=== PATIENT | female | born 1940 | race Caucasian/White ===

== ENCOUNTER 2023-12-15 08:22 | Emergency (ER) | payer BC ==
[~2023-12-15] VITALS: Ht 157.5 cm; Wt 57.6 kg
[2023-12-15 08:28] VITALS: TEMP 97.4
[2023-12-15 10:05] VITALS: BP 171/88; PULSE 77; RESP 14; O2SAT 97
[2023-12-15] MEDS ORDERED: BENZ-38 PO (11:20)
[2023-12-15 11:21] LABS: BASOPHILS # (AUTO) 0.1 X10'3 (0-0.2); BASOPHILS % (AUTO) 0.6 % (0-1); EOSINOPHILS # (AUTO) 0.3 X10'3 (0-0.9); EOSINOPHILS % (AUTO) 2.8 % (0-6); HEMATOCRIT 45.5 % (35.0-45.0); HEMOGLOBIN 14.8 g/dl (12.0-16.0); LYMPHOCYTES # (AUTO) 1.8 X10'3 (1.1-4.8); LYMPHOCYTES % (AUTO) 17.8 % (21-51); MEAN CORPUSCULAR HEMOGLOBIN 27.3 PG (27.0-31.0); MEAN CORPUSCULAR HGB CONC 32.5 g/dL (33.0-36.5); MEAN CORPUSCULAR VOLUME 83.9 FL (78-98); MONOCYTES # (AUTO) 1.1 X10'3 (0-0.9); MONOCYTES % (AUTO) 10.5 % (2-12); NEUTROPHILS % (AUTO) 68.3 % (42-75); PLATELET COUNT 452 X10'3 (140-440); RED BLOOD COUNT 5.43 X10'6 (4.20-5.60); RED CELL DISTRIBUTION WIDTH 14.5 % (11.5-14.5); WHITE BLOOD COUNT 10.3 X10'3 (4.5-11.0)
[2023-12-15 11:25] LABS: D-DIMER 0.83 MG/L FEU (0-0.50)
[2023-12-15] MEDS ORDERED: LISI10TA27 PO (11:26)
[2023-12-15 11:40] LABS: ALBUMIN 2.9 G/DL (3.4-5.0); ANION GAP 6 (8-16); BLOOD UREA NITROGEN 14 MG/DL (7-18); BUN/CREATININE RATIO 17.1 (10.0-20.0); CALCIUM 8.8 MG/DL (8.5-10.1); CHLORIDE 104 MMOL/L (99-107); CREATININE 0.82 MG/DL (0.40-0.90); GLUCOSE 108 MG/DL (70-104); POTASSIUM 3.9 MMOL/L (3.5-5.1); PRO BRAIN NATRIURETIC PEPTIDE 306 PG/ML (0-450); SODIUM 140 MMOL/L (135-145); TOTAL CARBON DIOXIDE 29.7 MMOL/L (24-32); eCRCL 43 ML/MIN; eGFR 67 ML/MIN
== END 2023-12-15 11:43 | disposition home or self-care (01) ==
LOC: ER 08:23
DX: R05.9 Cough, unspecified (principal); I10 Essential (primary) hypertension
CPT/HCPCS: 36415; 71045; 80048; 83880; 84145; 85025; 85379; 93005; 99285

== ENCOUNTER 2025-03-06 09:29 | Emergency (ER) | payer BC, MEDICAID ==
[~2025-03-06] VITALS: Ht 157.5 cm; Wt 74.8 kg
[~2025-03-06 09:29] MED LIST: LISI10TA27 PO
[2025-03-06 09:39] VITALS: TEMP 99.1
--- NOTE | 2025-03-06 09:39 | Physician Documentation ---
History of Present Illness ~ Stated Complaint: FLU SYMPTOMS Time Seen by MD: 09:38 [facility] 84 yr old female presents to the emergency department for four days if symptoms of cough cold congestion. She also notes that she had some symptoms earlier of my heart felt like it was being squeezed. she denies chills or fever. She denies pain to include chest pain. Medication Reconciliation Allergies: Coded Allergies: No Known Allergies (Unverified , 12/15/23) Scheduled Lisinopril (Lisinopril), 1 TAB PO DAILY Past Medical History Past Medical History: Hypertension Past Surgical History: noncontributory Drug Use: none Lives In: Home Review of Systems ROS As stated above in the HPI, otherwise all systems are reviewed and negative. Physical Exam Physical Exam General: Alert, no apparent distress. HEENT: PERRL, EOMI, no injection, moist mucous membranes. Right TM erythematous. Left TM normal. Both canals clear. Neck: Full range of motion. Respiratory: Scattered wheezes, frequent tight cough. No distress. No tachypnea. Chest: No accessory muscle use. Cardiovascular: Regular rate and rhythm, no murmurs. Gastrointestinal: Soft, nontender, nondistended. Bowels sounds present. Extremities: Normal range of motion, no deformity. Neurologic: Oriented x4. Psychiatric: Normal mood and affect. Skin: Normal color, warm and dry. No edema, no ecchymosis. 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 MACHINE OPERATOR Chest,Single View (03/06/25 09:52) Saline Lock (03/06/25 09:52) Monitor (03/06/25 09:52) Hs Troponin I W Calculations (03/06/25 11:52) Hs Troponin I W Calculations (03/06/25 12:52) Covid19 Binax Poc Result Entry (03/06/25 10:44) Completed Orders - SALINA FARAH TUBE MACHINE OPERATOR Electrocardiogram (03/06/25 09:42) Cbc/Diff (03/06/25 09:52) MG (03/06/25 09:52) PBNP (03/06/25 09:52) Chest,Single View (03/06/25 09:52) BMP (03/06/25 09:52) Hs Troponin I W Calculations (03/06/25 09:52) Vital Signs 03/06/25 03/06/25 03/06/25 03/06/25 09:39 10:09 10:11 11:15 Temp 99.1 Pulse 83 84 79 Resp 16 21 11 B/P (MAP) 157/88 168/116 (133) 146/95 (112) Pulse Ox 99 97 98 O2 Flow Rate 0 0 0 Laboratory Tests Test 03/06/25 10:10 03/06/25 10:50 03/06/25 12:04 White Blood Count 7.5 Red Blood Count 5.67 H Hemoglobin 15.5 Hematocrit 46.6 H Mean Corpuscular Volume 82.2 Mean Corpuscular Hemoglobin 27.3 Mean Corpuscular Hemoglobin Concent 33.2 Red Cell Distribution Width 14.9 H Platelet Count 344 Mean Platelet Volume 8.6 Neutrophils (%) (Auto) 62.7 Lymphocytes (%) (Auto) 19.0 L Monocytes (%) (Auto) 14.5 H Eosinophils (%) (Auto) 3.4 Basophils (%) (Auto) 0.4 Neutrophils # (Auto) 4.7 Lymphocytes # (Auto) 1.4 Monocytes # (Auto) 1.1 H Eosinophils # (Auto) 0.3 Basophils # (Auto) 0.0 CBC Comment Sodium Level 139 Potassium Level 3.7 Chloride Level 104 Carbon Dioxide Level 28.4 Anion Gap 7 L Blood Urea Nitrogen 15 Creatinine 0.94 H Estimated GFR/1.73 m2 57 BUN/Creatinine Ratio 16.0 Glucose Level 116 H Calcium Level 8.5 Magnesium Level 2.1 Troponin I High Sensitivity 6 6 Pro-B-Type Natriuretic Peptide 119 Albumin 3.3 L Chemistry Comments SARS-CoV-2 Antigen (Rapid) Negative Troponin I High Sens Percent Delta 0 Troponin I Hi Sens Absolute Change 0 EKG/XRAY/CT/US/VASC/MRI EKG : Additional Comment 4445 EKG interpreted to show RSR rate of 85. No ST segment elevation. QTC 431 ms. Chest X-Ray : Additional Comments [facility] [address] [facility], [facility] [address] DIAGNOSTIC RADIOLOGY Patient: YASMANY JUDD Medical Record: [id number] [facility] 1940, Age: 84 Sex: Female Location: ER Patient Status: [facility] ER Service Date/Time: 03/06/25951 Ordering Physician: SALINA FARAH NP Exam: CHEST,SINGLE VIEW EXAM: XR Chest, 1 View CLINICAL INDICATION: Pain TECHNIQUE: Frontal view of the chest. COMPARISON: No relevant prior studies available. FINDINGS: LUNGS AND PLEURAL SPACES: Unremarkable. No consolidation. No pneumothorax. HEART: Unremarkable. No cardiomegaly. MEDIASTINUM: Unremarkable. Normal mediastinal contour. BONES/JOINTS: Unremarkable. No acute fracture. IMPRESSION: No acute cardiopulmonary process. Electronically Signed by:TIKA DARBY MD Date & Time: 03/06/25 1011 Dictated by: TIKA DARBY MD Dictation date and time: 03/06/25 0956 Primary Care Provider: NO PRIMARY CARE PROVIDER cc: SALINA FARAH NP ~ Departure Time of Disposition: 12:38 Disposition: 01 HOME / SELF CARE / HOMELESS Impression: Primary Impression: Upper respiratory infection Additional Impression: Chest pain Condition: Stable Discharge Instructions: Nonspecific Chest Pain, Adult, Upper Respiratory Infection, Adult Additional Instructions: Your cardiac work up today was negative. Your EKG and Chest xray were normal. You have an upper respiratory infection. Take the mucinex, inhaler, and nasal saline as needed. See your primary care for recheck next week. Return if worse. Referrals: NO PRIMARY CARE PROVIDER (PCP) Prescriptions Albuterol Sulfate (Ventolin Hfa) 90 Mcg Hfa.aer.ad 2 PUFFS INH Q4HPRN PRN for wheezing for 30 Days, #18 GM 0 Refills Prov: SALINA FARAH NP 03/06/25 Sodium Chloride (Saline Mist) 0.65 % [place] 2 SPRAYS BOTHNARES Q12H for 30 Days, #44 ML 0 Refills Prov: SALINA FARAH NP 03/06/25 Guaifenesin (Mucinex) 600 Mg Tablet.sa 1 TAB PO Q12H for cough for 10 Days, #20 TAB 0 Refills Prov: SALINA FARAH NP 03/06/25 Education Educated: Patient Educated regarding: diagnosis, treatment, prognosis, need for follow up Signature Scribe Signature: no scribe Attestation: The note accurately reflects work and decisions made by me.Salina Rubio NP 03/06/25 10:57 SALINA FARAH NP Mar 06, 2025 09:39
--- NOTE | 2025-03-06 09:48 | ELECTROCARDIOGRAPH REPORT ---
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
--- NOTE | 2025-03-06 10:14 | RADIOLOGY REPORT ---
EXAM: XR Chest, 1 View CLINICAL INDICATION: Pain TECHNIQUE: Frontal view of the chest. COMPARISON: No relevant prior studies available. FINDINGS: LUNGS AND PLEURAL SPACES: Unremarkable. No consolidation. No pneumothorax. HEART: Unremarkable. No cardiomegaly. MEDIASTINUM: Unremarkable. Normal mediastinal contour. BONES/JOINTS: Unremarkable. No acute fracture. IMPRESSION: No acute cardiopulmonary process.
[2025-03-06 10:28] LABS: MEAN PLATELET VOLUME 8.6 FL (7.4-10.4); RED CELL DISTRIBUTION WIDTH 14.9 % (11.5-14.5)
[2025-03-06 10:46] LABS: CREATININE 0.94 MG/DL (0.40-0.90); PRO BRAIN NATRIURETIC PEPTIDE 119 PG/ML (0-450); TOTAL CARBON DIOXIDE 28.4 MMOL/L (24-32); eCRCL 36 ML/MIN; eGFR 57 ML/MIN
[2025-03-06] MEDS ORDERED: SODI45SP5 BOTHNARES (12:40)
[2025-03-06] MEDS ORDERED: GUAI600T45 PO (12:40)
[2025-03-06] MEDS ORDERED: ALBU18HF2 INH (12:40)
[2025-03-06 13:04] VITALS: BP 156/90; PULSE 82; RESP 19; O2SAT 96
== END 2025-03-06 13:06 | disposition home or self-care (01) ==
LOC: ER 09:32
DX: J06.9 Acute upper respiratory infection, unspecified (principal); R07.9 Chest pain, unspecified; I10 Essential (primary) hypertension; R06.02 Shortness of breath; Z20.822 Contact with and (suspected) exposure to COVID-19
CPT/HCPCS: 36415; 71045; 80048; 83735; 83880; 84484; 85025; 87811; 93005; 99285

== ENCOUNTER 2025-03-09 09:14 | Emergency (ER) | payer BC, MEDICAID ==
[~2025-03-09] VITALS: Ht 157.5 cm; Wt 75.3 kg
[~2025-03-09 09:14] MED LIST changes: +ALBU18HF2 INH; +GUAI600T45 PO; +SODI45SP5 BOTHNARES
[2025-03-09 09:30] VITALS: BP 161/85; PULSE 90; RESP 18; TEMP 99.4; O2SAT 94
--- NOTE | 2025-03-09 10:42 | Physician Documentation ---
History of Present Illness ~ Chief Complaint: Cold, cough & congestion Stated Complaint: BAD COUGH Time Seen by MD: 10:10 HPI Patient is seen today with complaints of cough cold or congestion. Patient states many of her other family members are sick having recently come back from a trip to [place]. Patient states he all got sick around the same time. Patient does admit to some shortness of breath and productive cough and feeling feverish and chills with some body aches and feeling weak. Low energy. Patient denies any abdominal pain or nausea, vomiting, diarrhea. Patient has no other concern or complaint at this time. Medication Reconciliation Allergies: Coded Allergies: No Known Allergies (Unverified , 03/09/25) Scheduled Guaifenesin (Mucinex), 1 TAB PO Q12H Lisinopril (Lisinopril), 1 TAB PO DAILY Sodium Chloride (Saline Mist), 2 SPRAYS BOTHNARES Q12H Scheduled PRN Albuterol Sulfate (Ventolin Hfa), 2 PUFFS INH Q4HPRN PRN for wheezing Past Medical History Past Medical History: Hypertension Past Surgical History: noncontributory Drug Use: none Lives In: Home Review of Systems Constitutional: Denies: chills, fever, weakness Eyes: Denies: pain, blurred vision ENT: Denies: ear pain, nose pain, throat pain, mouth pain Respiratory: Denies: cough, shortness of breath Cardiovascular: Denies: chest pain, palpitations Gastrointestinal: Denies: abdominal pain, nausea, vomiting Genitourinary: Denies: burning, dysuria Female Genitalia: Denies: vaginal discharge, pelvic pain Neurological: Denies: headache, dizziness Musculoskeletal: Denies: pain, swelling Integumentary: Denies: rash, lesions Allergic/Immunologic: Denies: hives, itching Hematologic/Lymphatic: Denies: no symptoms reported Psychiatric: Denies: depression, anxiety Physical Exam Vital Signs: Temperature: 99.4, Source: Oral, Heart Rate: 90, Respiratory Rate: 18, BP: 161/85, Pulse Oximetry: 94, Weight: 75.300 Physical Exam General: Awake and Alert, no acute distress. HEENT: Conjunctiva pink, Sclera clear, Mucus Membranes moist. Neck: Supple without masses and tenderness. Resp: Patient on exam does have mild rhonchi bilaterally at the bases, no significant wheezing and patient does have good air movement throughout. Heart: Regular Rate and rhythm, normal S1 and S2 without murmur, rub or gallop. Abdomen: Soft and non tender no organomegaly Extremities: No cyanosis,clubbing or edema. Skin: Warm and Dry. Progress Results/Orders Results/Orders Orders - BIANKA TOWNSEND PAC Chest,Two Views (03/09/25 10:37) Completed Orders - BIANKA TOWNSEND PAC Chest,Two Views (03/09/25 10:37) Amox Tr/Potassium Clavulanate (Augmentin (03/09/25 10:37) Prednisone Tablet (Prednisone Tablet) (03/09/25 10:41) Medications Received in ER Medications (Trade) Dose Ordered Sig/Mary Route PRN Reason Start Time Stop Time Status Last Admin Dose Admin (Augmentin 875-125mg tablet) 1 tab ONCE STAT PO 03/09/25 10:37 03/09/25 10:41 DC 03/09/25 10:56 1 TAB (predniSONE tablet) 20 mg ONCE STAT PO 03/09/25 10:41 03/09/25 10:43 DC 03/09/25 10:56 20 MG Vital Signs 03/09/25 09:30 Temp 99.4 Pulse 90 Resp 18 B/P (MAP) 161/85 Pulse Ox 94 EKG/XRAY/CT/US/VASC/MRI Chest X-Ray : Additional Comments Chest x-ray interpreted by myself today shows increased pulmonary vascular congestion or viral pneumonia unchanged from previous imaging, no large effusion, normal mediastinum. DIAGNOSTIC RADIOLOGY Patient: YASMANY JUDD Medical Record: [id number] [facility] 1940, Age: 84 Sex: Female Location: ER Patient Status: REG ER Service Date/Time: 03/09/25/ 1036 Ordering Physician: BIANKA TOWNSEND PAC Exam: CHEST,TWO VIEWS CHEST RADIOGRAPH Indication: cough Technique: Frontal and lateral view of the chest was obtained Comparison: None FINDINGS: Lines and Tubes: None Lungs: Increased interstitial prominence Pleura: No effusion. No pneumothorax. Cardiomediastinal contours: Unremarkable Bones: Unremarkable IMPRESSION: Unchanged pulmonary vascular congestion or viral pneumonia Electronically Signed by:REAL BAZAN MD Date & Time: 03/09/25 1116 Dictated by: REAL BAZAN MD Dictation date and time: 03/09/25 1102 Primary Care Provider: NO PRIMARY CARE PROVIDER cc: BIANKA TOWNSEND PAC ~ Medical Decision Making Findings Patient is seen today with complaints of cough cold or congestion. Patient states many of her other family members are sick having recently come back from a trip to [place]. Patient states he all got sick around the same time. Patient does admit to some shortness of breath and productive cough and feeling feverish and chills with some body aches and feeling weak. Low energy. Patient denies any abdominal pain or nausea, vomiting, diarrhea. Patient has no other concern or complaint at this time. Patient did have chest x-ray that did show pulmonary vascular congestion or viral pneumonia, prescription of Augmentin given to patient with 1st dose in the ED today along with Medrol Dosepak sent to patient's pharmacy. Patient will follow up with primary care in 2-5 days if no better as needed sooner. Return to ED with any worsening, concerning or changing symptoms, increase rest and fluids and continue Tylenol and ibuprofen as needed for symptomatic relief. Departure Disposition: 01 HOME / SELF CARE / HOMELESS Impression: Primary Impression: Acute bronchitis Qualified Codes: J20.9 - Acute bronchitis, unspecified Condition: Improved Discharge Instructions: Sinus Infection, Adult, Acute Bronchitis, Adult Additional Instructions: Patient did have chest x-ray that did show pulmonary vascular congestion or viral pneumonia, prescription of Augmentin given to patient with 1st dose in the ED today along with Medrol Dosepak sent to patient's pharmacy. Patient will follow up with primary care in 2-5 days if no better as needed sooner. Return to ED with any worsening, concerning or changing symptoms, increase rest and fluids and continue Tylenol and ibuprofen as needed for symptomatic relief. Referrals: NO PRIMARY CARE PROVIDER (PCP) Prescriptions Methylprednisolone (Medrol Dosepak) 4 Mg Tab.ds.pk 0 PO UD, #21 TAB 0 Refills take 6 Pills Day 1, 5 Pills Day 2, 4 Pills Day 3, 3 Pills Day 4, 2 Pills Day 5 and 1 pill Day 6 Prov: BIANKA TOWNSEND 03/09/25 Amox Tr/Potassium Clavulanate 875/125 MG (Augmentin 875/125 MG) 875 Mg-125 Mg Tablet 1 TAB PO Q12H for 10 Days, #20 TAB Prov: BIANKA TOWNSEND 03/09/25 Signature Scribe Signature: No scribe Attestation: No scribe BIANKA TOWNSEND Mar 09, 2025 10:42
[2025-03-09] MEDS: amox tr/potassium clavulanate 875/125mg TAB PO STA (10:56)
--- NOTE | 2025-03-09 11:18 | RADIOLOGY REPORT ---
CHEST RADIOGRAPH Indication: cough Technique: Frontal and lateral view of the chest was obtained Comparison: None FINDINGS: Lines and Tubes: None Lungs: Increased interstitial prominence Pleura: No effusion. No pneumothorax. Cardiomediastinal contours: Unremarkable Bones: Unremarkable IMPRESSION: Unchanged pulmonary vascular congestion or viral pneumonia
[2025-03-09] MEDS ORDERED: AMOX-580 PO (11:30)
[2025-03-09] MEDS ORDERED: METH4TAB81 PO (11:30)
== END 2025-03-09 11:47 | disposition home or self-care (01) ==
LOC: ER 09:15
DX: J20.9 Acute bronchitis, unspecified (principal); I10 Essential (primary) hypertension
CPT/HCPCS: 71046; 99283; J7512

== ENCOUNTER 2025-06-09 14:25 | Inpatient (IN) | payer BC, MEDICAID ==
[~2025-06-09] VITALS: Ht 157.5 cm; Wt 72.0 kg
[~2025-06-09 14:25] MED LIST changes: +METH4TAB81 PO
--- NOTE | 2025-06-09 15:15 | RADIOLOGY REPORT ---
EXAM: DI KNEE, COMP 4 VW MIN CLINICAL INDICATION: KNEE PAIN TECHNIQUE: DI KNEE, COMP 4 VW MIN Comparison: None FINDINGS/IMPRESSION: There is no evidence of acute fracture or dislocation. The visualized joint space is well maintained. The alignment is anatomical. There is no radiopaque foreign body.
[2025-06-09] MEDS ORDERED: ketorolac trometh 30MG/ML vial 30 MG/ML VIAL IM STA (15:50)
[2025-06-09] MEDS: oxyCODONE/APAP 5-325mg tablet PO STA (16:13)
[2025-06-09] MEDS: ondansetron 4mg rapidly disintigrating tab PO STA ×2 (16:13→19:03)
[2025-06-09] MEDS: ketorolac trometh 15mg/ml vial 15 MG/ML ML IM STA (16:13)
--- NOTE | 2025-06-09 17:05 | RADIOLOGY REPORT ---
EXAM: CT CT LOWER EXTREMITY INDICATION: non-diagnostic xray left knee TECHNIQUE: Axial images of left lower extremity have been obtained along with coronal and sagittal reformatted images. All CT scans at this facility use dose modulation, iterative reconstruction, and/or weight based dosing when appropriate to reduce radiation dose to as low as reasonably achievable. COMPARISON: None FINDINGS: BONES: Sagittally oriented nondisplaced fracture of the proximal tibia extending through the lateral tibial spine and extension to the lateral tibial plateau. Cortical depressed fracture of the lateral tibial plateau with 3 mm cortical depression. Diffusely decreased bone mineralization. MUSCLES: No intramuscular hematoma mild fatty infiltration of the biceps femoris. JOINT SPACES: Large lipohemarthrosis. TENDONS/LIGAMENTS: Intact. OTHER: None. IMPRESSION: 1. Sagittally oriented nondisplaced fracture of the proximal tibia extending through the lateral tibial spine and extension to the lateral tibial plateau. 2. Cortical depressed fracture of the lateral tibial plateau with 3 mm cortical depression. 3. Large lipohemarthrosis.
--- NOTE | 2025-06-09 17:38 | Physician Documentation ---
History of Present Illness ~ Chief Complaint: Knee Pain Stated Complaint: FALL Time Seen by MD: 14:50 HPI Patient is seen today with complaints of a ground level fall. Patient states she was walking up some wooden steps and tripped and fell forward and landed full force on her left knee. Patient states she is unable to bear weight on that left leg or left knee. She has no other concern or complaint at this time. She denies any head strike or loss of consciousness. Tetanus witin 5 years: No Medication Reconciliation Allergies: Coded Allergies: No Known Allergies (Unverified , 06/09/25) Scheduled Guaifenesin (Mucinex), 1 TAB PO Q12H Lisinopril (Lisinopril), 1 TAB PO DAILY Methylprednisolone (Medrol Dosepak), 0 PO UD Sodium Chloride (Saline Mist), 2 SPRAYS BOTHNARES Q12H Scheduled PRN Albuterol Sulfate (Ventolin Hfa), 2 PUFFS INH Q4HPRN PRN for wheezing Past Medical History Past Medical History: Hypertension Past Surgical History: noncontributory Smoking Status: Never smoker Drug Use: none Lives In: Home Review of Systems Constitutional: Denies: chills, fever, weakness Eyes: Denies: pain, blurred vision ENT: Denies: ear pain, nose pain, throat pain, mouth pain Respiratory: Denies: cough, shortness of breath Cardiovascular: Denies: chest pain, palpitations Gastrointestinal: Denies: abdominal pain, nausea, vomiting Genitourinary: Denies: burning, dysuria Female Genitalia: Denies: vaginal discharge, pelvic pain Neurological: Denies: headache, dizziness Musculoskeletal: Denies: pain, swelling Integumentary: Denies: rash, lesions Allergic/Immunologic: Denies: hives, itching Hematologic/Lymphatic: Denies: no symptoms reported Psychiatric: Denies: depression, anxiety Physical Exam Vital Signs: Temperature: 98.6, Source: Oral, Heart Rate: 77, Respiratory Rate: 16, BP: 170/98, Pulse Oximetry: 98, Weight: 72.000 Oxygen Flow Rate: 0 Physical Exam General: Awake and Alert, no acute distress. HEENT: Conjunctiva pink, Sclera clear, Mucus Membranes moist. Neck: Supple without masses and tenderness. Resp: Unlabored. Lungs clear to auscultation bilaterally. Heart: Regular Rate and rhythm, normal S1 and S2 without murmur, rub or gallop. Musculoskeletal: Patient on exam does have significant joint effusion of the left knee appreciable on exam and visual inspection. Patient has significant pain with even light range of motion of the left knee and significant tenderness to palpation of the anterior tibia. Patient is neurovascularly intact distally. Motor function intact distally. Extremities: No cyanosis,clubbing or edema. Skin: Warm and Dry. Progress Results/Orders Results/Orders Orders - BIANKA TOWNSEND PAC Ct Lower Extremity (06/09/25 16:25) Completed Orders - BIANKA TOWNSEND PAC Ct Lower Extremity (06/09/25 16:25) Ondansetron Disint. Tablet (Zofran Odt T (06/09/25 15:50) Oxycodone/Acetaminophen Tablet (Percocet (06/09/25 15:50) Ketorolac Trometh 15mg/Ml Vial (Toradol (06/09/25 16:03) Medications Received in ER Medications (Trade) Dose Ordered Sig/Mary Route PRN Reason Start Time Stop Time Status Last Admin Dose Admin (Zofran ODT tablet) 4 mg ONCE STAT PO 06/09/25 15:50 06/09/25 15:53 DC 06/09/25 16:13 4 MG (Percocet 5-325mg tab) 1 tab ONCE STAT PO 06/09/25 15:50 06/09/25 15:53 DC 06/09/25 16:13 1 TAB (Toradol injection) 15 mg ONCE STAT IM 06/09/25 16:03 06/09/25 16:04 DC 06/09/25 16:13 15 MG Vital Signs 06/09/25 06/09/25 06/09/25 06/09/25 14:45 16:13 16:13 16:50 Temp 98.6 Pulse 92 77 Resp 18 18 18 16 B/P (MAP) 189/109 170/98 (122) Pulse Ox 93 98 O2 Flow Rate 0 Medical Decision Making Findings Patient is seen today with complaints of a ground level fall. Patient states she was walking up some wooden steps and tripped and fell forward and landed full force on her left knee. Patient states she is unable to bear weight on that left leg or left knee. She has no other concern or complaint at this time. She denies any head strike or loss of consciousness. Patient did have nondisplaced fracture of the proximal tibia visualized on CT scan. Patient will be admitted for observation and placed in knee immobilizer. Patient was given [place] for pain control in his little more comfortable. I did consult with hospitalist and patient will be admitted. I did call Dr. Ordonez who states he will round on the patient tomorrow. Departure Disposition: ADMITTED INPATIENT Admitted to Inpatient Unit: to hospitalist Admission Level of Care: Med/Surg Impression: Primary Impression: Tibia fracture Qualified Codes: S82.192A - Other fracture of upper end of left tibia, initial encounter for closed fracture Condition: Improved Discharge Instructions: Nondisplaced Tibial Plateau Fracture Additional Instructions: Patient did have nondisplaced fracture of the proximal tibia visualized on CT scan. Patient will be admitted for observation and placed in knee immobilizer. Patient was given [place] for pain control in his little more comfortable. I did consult with hospitalist and patient will be admitted. I did call Dr. Ordonez who states he will round on the patient tomorrow. Referrals: NO PRIMARY CARE PROVIDER (PCP) Signature Scribe Signature: No scribe Attestation: No scribe BIANKA TOWNSEND PAC Jun 09, 2025 17:38
[2025-06-09] MEDS ORDERED: magnesium hydroxide 30ml (MOM) UD suspension PO PRN (17:45)
[2025-06-09] MEDS ORDERED: HYDROmorphone inj. 0.5 MG/0.5 ML DISP.SYRIN IV PRN (17:45)
[2025-06-09] MEDS ORDERED: potassium Cl 40MEQ/1/2NS 520ml 520 ML IV PRN (17:45)
[2025-06-09] MEDS ORDERED: potassium Cl 20 mEq SR tablet PO PRN ×2 (17:45)
[2025-06-09] MEDS ORDERED: magnesium sulf-water 4G/100mL 100 ML IV PRN (17:45)
[2025-06-09] MEDS ORDERED: magnesium sulf-water 2g/50mL 50 ML IV PRN (17:45)
[2025-06-09] MEDS ORDERED: HYDROmorphone/PF 0.2 MG/ML SYRINGE IV PRN (17:45)
[2025-06-09] MEDS ORDERED: ondansetron/PF 4mg/2ml inj IV PRN (17:45)
[2025-06-09] MEDS ORDERED: magnesium Cl slow-release 64mg tablet PO PRN (17:45)
[2025-06-09] MEDS ORDERED: mag hydrox/Alum hydrox/simeth 30ml oral suspension PO PRN (17:45)
[2025-06-09] MEDS: normal saline 1000ml 1,000 ML IV SCH (18:01)
--- NOTE | 2025-06-09 18:25 | HISTORY AND PHYSICAL-Residence ---
History & Physical Providers to CC Resident Creating Document: GOMEZRUELHONG ALONDRA ~ History of Present Illness Reason for Admit\Complaint: Proximal Tibia Fracture History of Present Illness This is an 84-year-old female with no known comorbidity presented in ER after fall from stairs approximately 2 hours prior to arrival. Patient reports that she was going with her granddaughter to see a new house, where she fell down from the stairs landing on the ground. She denies any dizziness,nausea, weakness vertigo prior to the fall. She did not lose consciousness at the time of incident. As per patient this is the 1st time she experienced a fall and and never had any kind of fracture. Since the fall the patient has been experiencing severe pain in her left knee which is 10/10 in intensity and occasionally radiates to the left thigh and leg, patient reports that pain is worsened with leg movement and touch. Patient and her granddaughter does not remember exactly that she hit her head on the ground. Allergies: Coded Allergies: No Known Allergies (Unverified , 06/09/25) Home Medications Home Medications Active Medrol Dosepak (Methylprednisolone) 4 Mg Tab.ds.pk 0 PO UD take 6 Pills Day 1, 5 Pills Day 2, 4 Pills Day 3, 3 Pills Day 4, 2 Pills Day 5 and 1 pill Day 6 Ventolin Hfa (Albuterol Sulfate) 90 Mcg Hfa.aer.ad 2 Puffs INH Q4HPRN PRN 30 Days Saline Mist (Sodium Chloride) 0.65 % [place] 2 Sprays BOTHNARES Q12H 30 Days Mucinex (Guaifenesin) 600 Mg Tablet.sa 1 Tab PO Q12H 10 Days Lisinopril 10 Mg Tablet 1 Tab PO DAILY 30 Days Past Medical History Past Medical History Denies any past medical history Past Surgical History Surgical History Comment Denies any past surgical history Family History Family History: Cancer of mouth (Son) FH: colon cancer (father) FH: throat cancer (Son) Past Social History Social History Comment Patient denies any history of smoking Patient deny any history of alcohol Patient denies any other recreational drug use She lives with her granddaughter 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 Lungs clear to auscultation bilaterally. Chest: Normal expansion. Cardiovascular: Regular Rate and rhythm, normal S1 and S2 without murmur, rub or gallop Abdomen: Soft and non tender in epigastrium, no organomegaly, no guarding and rigidity, bowel sounds present Neuro: No focal weakness in the upper and lower limb muscles, power of the muscles 5/5 bilateral upper extremity, normal reflexes bilaterally. Cranial nerves intact Power of the muscle left lower extremity could not be assessed because of pain and reflexes could not be assesed because of pain Power of muscle right lower extremity 5/5, reflexes normal Gait could not be assessed. Extremities: No cyanosis clubbing or edema in upper extremity Right lower Extremity: No cyanosis, clubbing or edema Left Lower Extremity: Knee swollen,no cyanosis or clubbing. Skin: Warm and Dry Psych: Normal affect Advance Care Planning Advanced Care plannin - 30 Minutes (I spent 17 minutes in discussing various resuscitative measures with the patient and she chose to be full code) Additional Plan This is a 84-year-old female with no known comorbidity presented in ER with a complaint of pain in left knee after a fall. Mechanical fall Non Displaced Fracture of Proximal Tibia Cortical Depressed Fracture of Lateral Tibial [place] Lower extremity CT:1. Sagittally oriented nondisplaced fracture of the proximal tibia extending through the lateral tibial spine and extension to the lateral tibial plateau. Cortical depressed fracture of the lateral tibial plateau with 3 mm cortical depression. Large lipohemarthrosis. PT eval and treat Started patient on pain meds Patient received ketorolac 15 mg IM, Percocet 5-325 mg in ER Patient is placed on knee immobilizer As per ER physician, Dr. Ordonez has been consulted, who recommended no surgery to the patient and and recommended rehab CT Head, labs, UA, U tox, lipid panel Awaiting results Follow up with that Disposition: Patient has been admitted to hospital for the pain control, PT eval pending, patient would likely benefit from rehab. Code status: Full code DVT prophylaxis: Heparin Diet: Regular Date of Service: Jun 09, 2025 Billing Provider: BAR RUIZ MD Common Visit Codes: 12495-[id number] INP/OBS CARE (HIGH) Secondary Visit Codes: [id number] CARE PLAN 30 MINUTES HONG GOMEZ, RES Jun 09, 2025 18:25 BAR RUIZ MD Jun 10, 2025 22:54
[2025-06-09 19:03] LABS: MEAN PLATELET VOLUME 8.1 FL (7.4-10.4); RED CELL DISTRIBUTION WIDTH 14.7 % (11.5-14.5)
[2025-06-09] MEDS: oxyCODONE/APAP 5-325mg tablet PO ONE (19:03)
--- NOTE | 2025-06-09 19:18 | RADIOLOGY REPORT ---
CLINICAL HISTORY: fall TECHNIQUE: Helical scanning was performed of the head from the skull base to the vertex. Multiplanar reconstructions were performed. This exam was performed according to our departmental dose optimization program. Up-to-date CT equipment and radiation dose reduction techniques are utilized as appropriate. CTDI 60.7 DLP 1141 COMPARISON: None FINDINGS: There is no evidence for acute intracranial hemorrhage, acute ischemic changes, mass, mass effect, or extra-axial fluid collection. There is no hydrocephalus or midline shift. There is no effacement of the cerebral sulci and basal subarachnoid cisterns. The portillo-white matter differentiation is well maintained. There is mild brain volume loss and leto-dj-[id number] chronic small vessel ischemic change. There has been bilateral cataract extraction. The imaged paranasal sinuses are clear. IMPRESSION: NO ACUTE INTRACRANIAL ABNORMALITY SEEN.
[2025-06-09 19:27] LABS: CHOL/HDL RATIO 5.8 (0.00-4.99); CREATININE 0.85 MG/DL (0.40-0.90); LDL CHOLESTEROL 119 MG/DL (50-100); TOTAL CARBON DIOXIDE 27.6 MMOL/L (24-32); eCRCL 40 ML/MIN; eGFR 64 ML/MIN
[2025-06-09] MEDS: K and/or MAG REPLACEMENT MC SCH (20:00)
[2025-06-09] MEDS: heparin, porcine 5000 units/ml vial SQ SCH (21:32)
[2025-06-09] MEDS: docusate sod 100mg capsule PO SCH (21:32)
[2025-06-09 22:00] VITALS: BP 133/78; PULSE 61; RESP 15; TEMP 98.2; O2SAT 94
[2025-06-10 06:00] VITALS: BP 148/78; PULSE 72; RESP 14; TEMP 97.2; O2SAT 98
[2025-06-10] MEDS ORDERED: NO HOME MEDS (06:08)
[2025-06-10 06:11] LABS: MEAN PLATELET VOLUME 8.2 FL (7.4-10.4); RED CELL DISTRIBUTION WIDTH 15.3 % (11.5-14.5)
[2025-06-10 06:25] LABS: APTT 27 SECONDS (22-32); INR 1.0 INR
[2025-06-10 06:35] LABS: CREATININE 0.99 MG/DL (0.40-0.90); PHOSPHORUS 4.3 MG/DL (2.3-4.5); TOTAL CARBON DIOXIDE 30.5 MMOL/L (24-32); eCRCL 35 ML/MIN; eGFR 54 ML/MIN
[2025-06-10] MEDS: HYDROcodone/acetaminophen 5mg/325mg tablet PO PRN (08:18)
[2025-06-10] MEDS: ringers solution, lacted 1,000 ML IV SCH (10:20)
[2025-06-10 11:00] VITALS: BP 124/69; PULSE 88; RESP 15; TEMP 98.7; O2SAT 96
[2025-06-10 18:00] VITALS: BP 132/84; PULSE 75; RESP 17; TEMP 98.2; O2SAT 95
--- NOTE | 2025-06-10 18:00 | PROGRESS NOTE- Residence ---
Progress Note - Resident Providers to CC Resident Creating Document: HONG GOMEZ RES ~ Antibiotic Timeout Antibiotic Ordered?: No Subjective Patient was seen and examined on bedside, As per nurse she was refusing pain meds but eventually then she took pain meds Patient said that she wants to go to home not rehab, and mentions she has lot of help in home. She states she is feeling fine, denies pain in leg. Objective Vital Signs Date Time Temp Pulse Resp B/P (MAP) Pulse Ox O2 Delivery O2 Flow Rate FiO2 06/10/25 11:00 98.7 88 15 124/69 (87) 96 Room Air 06/10/25 08:00 0.0 Result Diagram: 06/10/2554106/10/25541 General: awake, alert oriented to place, time, and person HEENT: No pallor present, no icterus, moist mucous membranes Neck: No masses and tenderness Resp: Unlabored. Lungs clear to auscultation bilaterally. Chest: Normal expansion. Cardiovascular: Regular Rate and rhythm, normal S1 and S2 without murmur, rub or gallop Abdomen: Soft and non tender in epigastrium, no organomegaly, no guarding and rigidity, bowel sounds present Neuro: No focal weakness in the upper and lower limb muscles, power of the muscles 5/5 bilateral upper extremity, normal reflexes bilaterally. Cranial nerves intact Power of the muscle left lower extremity could not be assessed because of pain and reflexes could not be assesed because of pain Power of muscle right lower extremity 5/5, reflexes normal Gait could not be assessed. Extremities: No cyanosis clubbing or edema in upper extremity Right lower Extremity: No cyanosis, clubbing or edema Left Lower Extremity: Knee Immobilizer in place. Skin: Warm and Dry Psych: Normal affect Coagulation Studies Laboratory Tests Test 06/10/25 05:42 Prothrombin Time 10.2 SECONDS (9.0-12.0) INR International Normalized Ratio 1.0 INR Activated Partial Thromboplast Time 27 SECONDS (22-32) Coagulation Comments Plan Plan Additional Plan This is a 84-year-old female with no known comorbidity presented in ER with a complaint of pain in left knee after a fall. Mechanical fall Non Displaced Fracture of Proximal Tibia Cortical Depressed Fracture of Lateral Tibial [place] Lower extremity CT:1. Sagittally oriented nondisplaced fracture of the proximal tibia extending through the lateral tibial spine and extension to the lateral tibial plateau. Cortical depressed fracture of the lateral tibial plateau with 3 mm cortical depression. Large lipohemarthrosis. PT eval and treat Started patient on pain meds Patient received ketorolac 15 mg IM, Percocet 5-325 mg in ER Patient is placed on knee immobilizer As per ER physician, Dr. Ordonez has been consulted, who recommended no surgery to the patient and and recommended rehab Dr. Ordonez saw patient today Recommendations Recommended 24/7 knee immoblizer but can take off to look at skin if needed, F/U with him in 3-4 weeks but have an x-ray prior to visit. Per him patient has lot of help at home CT Head shows FINDINGS: There is no evidence for acute intracranial hemorrhage, acute ischemic changes, mass, mass effect, or extra-axial fluid collection. There is no hydrocephalus or midline shift. There is no effacement of the cerebral sulci and basal subarachnoid cisterns. The portillo-white matter differentiation is well maintained. There is mild brain volume loss and gjxk-jv-hihulkug chronic small vessel ischemic change. There has been bilateral cataract extraction. The imaged paranasal sinuses are clear. IMPRESSION: NO ACUTE INTRACRANIAL ABNORMALITY SEEN. Leukocytosis Resolved Hyperlipidemia TG 173 Cholestrol 191 LDL 119 Lifestyle modification recommended Patient have no known comorbidity DM HTN OR CAD Patient is obese Disposition: Patient has been admitted to hospital for the pain control, PT eval pending, Patient states she has lot of help at home and want to go to home, not rehab. Will be discharge tomorrow possibly am. Date of Service: Jun 10, 2025 Billing Provider: BAR RUIZ MD Common Visit Codes: [id number] INP/OBS CARE(HIGH) HONG GOMEZ, ALONDRA Jun 10, 2025 18:00 BAR RUIZ MD Jun 10, 2025 22:55
[2025-06-10 19:14] VITALS: RESP 16; O2SAT 96
[2025-06-10] MEDS ORDERED: docusate sodium 100mg/10ml UD cup PO SCH (20:00)
[2025-06-10 22:00] VITALS: BP 153/76; PULSE 74; RESP 13; TEMP 97.4; O2SAT 94
[2025-06-11 03:42] VITALS: O2SAT 94
[2025-06-11 06:00] VITALS: BP 137/51; PULSE 90; RESP 14; TEMP 97.4; O2SAT 91
[2025-06-11 06:00] LABS: MEAN PLATELET VOLUME 8.3 FL (7.4-10.4); RED CELL DISTRIBUTION WIDTH 15.0 % (11.5-14.5)
[2025-06-11 06:10] LABS: APTT 29 SECONDS (22-32); INR 1.0 INR
[2025-06-11 06:19] LABS: CREATININE 0.65 MG/DL (0.40-0.90); PHOSPHORUS 3.0 MG/DL (2.3-4.5); TOTAL CARBON DIOXIDE 30.4 MMOL/L (24-32); eCRCL 53 ML/MIN; eGFR 87 ML/MIN
[2025-06-11 10:00] VITALS: BP 140/74; PULSE 81; RESP 15; TEMP 98.4; O2SAT 97
[2025-06-11 18:00] VITALS: BP 158/62; PULSE 68; RESP 14; TEMP 97.4; O2SAT 92
[2025-06-11 20:00] VITALS: RESP 14; O2SAT 92
--- NOTE | 2025-06-11 20:00 | PROGRESS NOTE- Residence ---
Progress Note - Resident Providers to CC Resident Creating Document: HONG GOMEZ RES ~ Antibiotic Timeout Antibiotic Ordered?: No Subjective Patient was seen and examined on bedside, she was feeling fine , denies any pain Patient reports that she wants to go home and patient is declining rehab. Objective Vital Signs Date Time Temp Pulse Resp B/P (MAP) Pulse Ox O2 Delivery O2 Flow Rate FiO2 06/11/25 10:26 Room Air 0.0 06/11/25 10:00 98.4 81 15 140/74 (96) 97 06/11/25 03:42 21 Result Diagram: 06/11/25 0535 06/11/25 0535 General: awake, alert oriented to place, time, and person HEENT: No pallor present, no icterus, moist mucous membranes Neck: No masses and tenderness Resp: Unlabored. Lungs clear to auscultation bilaterally. Chest: Normal expansion. Cardiovascular: Regular Rate and rhythm, normal S1 and S2 without murmur, rub or gallop Abdomen: Soft and non tender in epigastrium, no organomegaly, no guarding and rigidity, bowel sounds present Neuro: No focal weakness in the upper and lower limb muscles, power of the muscles 5/5 bilateral upper extremity, normal reflexes bilaterally. Cranial nerves intact Power of the muscle left lower extremity could not be assessed because of pain and reflexes could not be assesed because of pain Power of muscle right lower extremity 5/5, reflexes normal Gait could not be assessed. Extremities: No cyanosis clubbing or edema in upper extremity Right lower Extremity: No cyanosis, clubbing or edema Left Lower Extremity: Knee Immobilizer in place. Skin: Warm and Dry Psych: Normal affect Coagulation Studies Laboratory Tests Test 06/11/25 05:35 Prothrombin Time 10.3 SECONDS (9.0-12.0) INR International Normalized Ratio 1.0 INR Activated Partial Thromboplast Time 29 SECONDS (22-32) Coagulation Comments Plan Plan Additional Plan This is a 84-year-old female with no known comorbidity presented in ER with a complaint of pain in left knee after a fall. Mechanical fall Non Displaced Fracture of Proximal Tibia Cortical Depressed Fracture of Lateral Tibial [place] Lower extremity CT:1. Sagittally oriented nondisplaced fracture of the proximal tibia extending through the lateral tibial spine and extension to the lateral tibial plateau. Cortical depressed fracture of the lateral tibial plateau with 3 mm cortical depression. Large lipohemarthrosis. PT eval and treat Started patient on pain meds Patient received ketorolac 15 mg IM, Percocet 5-325 mg in ER Patient is placed on knee immobilizer As per ER physician, Dr. Ordonez has been consulted, who recommended no surgery to the patient and and recommended rehab Dr. Ordonez saw patient today Recommendations Recommended 24/7 knee immoblizer but can take off to look at skin if needed, F/U with him in 3-4 weeks but have an x-ray prior to visit. Per him patient has lot of help at home CT Head shows FINDINGS: There is no evidence for acute intracranial hemorrhage, acute ischemic changes, mass, mass effect, or extra-axial fluid collection. There is no hydrocephalus or midline shift. There is no effacement of the cerebral sulci and basal subarachnoid cisterns. The portillo-white matter differentiation is well maintained. There is mild brain volume loss and zkxj-zu-igbemgmw chronic small vessel ischemic change. There has been bilateral cataract extraction. The imaged paranasal sinuses are clear. IMPRESSION: NO ACUTE INTRACRANIAL ABNORMALITY SEEN. Leukocytosis Resolved Hyperlipidemia TG 173 Cholestrol 191 LDL 119 Lifestyle modification recommended Patient have no known comorbidity DM HTN OR CAD Patient is obese Disposition: Patient will be discharged tomorrow possibly, patient declines rehab and wants to go home as he said she has a granddaughter who take care of her. Patient could not be discharged today due to wheelchair she will be discharged tomorrow with wheelchair. PT recommended rehab but patient refused rehab. 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
[2025-06-11 22:00] VITALS: BP 164/82; PULSE 80; RESP 16; TEMP 97.9; O2SAT 95
[2025-06-12 06:45] LABS: MEAN PLATELET VOLUME 8.4 FL (7.4-10.4); RED CELL DISTRIBUTION WIDTH 15.3 % (11.5-14.5)
[2025-06-12 06:52] LABS: APTT 27 SECONDS (22-32); INR 1.0 INR
[2025-06-12 07:04] LABS: CREATININE 0.78 MG/DL (0.40-0.90); PHOSPHORUS 3.1 MG/DL (2.3-4.5); TOTAL CARBON DIOXIDE 30.9 MMOL/L (24-32); eCRCL 44 ML/MIN; eGFR 71 ML/MIN
[2025-06-12 08:00] VITALS: RESP 14; O2SAT 96
[2025-06-12 09:31] VITALS: BP 158/85; PULSE 81; RESP 16; TEMP 97.9; O2SAT 97
[2025-06-12] MEDS ORDERED: HYDR-3965 PO (11:30)
[2025-06-12] MEDS ORDERED: DOCU100C40 PO (11:30)
[2025-06-12 11:36] VITALS: BP 147/85; PULSE 84; RESP 16; TEMP 97.9; O2SAT 96
--- NOTE | 2025-06-12 14:53 | DISCHARGE SUMMARY-Residence ---
Discharge Summary Providers to CC Resident Creating Document: HONG GOMEZ RES ~ Discharge Summary Admission Diagnosis: Proximal Tibia Fracture Hospital Course DATE OF ADMISSION: 06/09/25 DATE OF DISCHARGE: 06/12/25 Discharge Diagnosis\Comment: Nondisplaced fracture of the proximal tibia extending through the lateral tibial spine and extension to the lateral tibial plateau. Cortical depressed fracture of the lateral tibial plateau with 3 mm cortical depression. Large lipohemarthrosis. Leukocytosis Resolved Hyperlipidemia Operations\Procedures: None Consultants: Orthopedics was consulted Complications: None Condition on DC: Stable New Medications: Hydrocodone Bit/Acetaminophen 5/325 MG ([place] 5/325 MG) 5 Mg/325 Mg Tablet 1 TAB PO Q6H PRN for pain, #14 TAB Docusate Sodium (Docusate Sodium) 100 Mg Caps 100 MG PO BID, #60 CAP Discontinued Medications: Home Med List (No Home Medications) Each Discharge Summary: History of Presenting Illness This is an 84-year-old female with no known comorbidity presented in ER after fall from stairs approximately 2 hours prior to arrival. Patient reports that she was going with her granddaughter to see a new house, where she fell down from the stairs landing on the ground. She denies any dizziness,nausea, weakness vertigo prior to the fall. She did not lose consciousness at the time of incident. As per patient this is the 1st time she experienced a fall and and never had any kind of fracture. Since the fall the patient has been experiencing severe pain in her left knee which is 10/10 in intensity and occasionally radiates to the left thigh and leg, patient reports that pain is worsened with leg movement and touch. Patient and her granddaughter does not remember exactly that she hit her head on the ground. Hospital Course This is a 84-year-old female with no known comorbidity presented in ER after a fall from stairs approximately 2 hours prior to arrival on admission. Since the fall patient was experiencing severe pain in her left knee it was 10/10 in intensity. In view of this perform lower extremity CT which was suggestive of Nondisplaced fracture of the proximal tibia extending through the lateral tibial spine and extension to the lateral tibial plateau,Cortical depressed fracture of the lateral tibial plateau with 3 mm cortical depressionand Large lipohemarthrosis. Patient was complaining of pain in view of that received Ketoralac IM 15 mg, percocet ,In addition to that she received multiple doses of norco and she was also started on LR. For her fracture orthopedics was consulted who recommended no surgery for the patient and recommended 24/7 knee immobilizer. Patient also had leukocytosis on POA, which resolved on its own, In addition to that patient was also found to have highl lipid levels. Apart from that patient was also placed on DVT Prophylaxis with heparin. 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 Patient was requesting for wheelchair and PT also recommended Manual W/C. Patient was stable for discharge, discharged with knee immobilizer and home health services. Physical Examination General: awake, alert oriented to place, time, and person HEENT: No pallor present, no icterus, moist mucous membranes Neck: No masses and tenderness Resp: Unlabored. Lungs clear to auscultation bilaterally. Chest: Normal expansion. Cardiovascular: Regular Rate and rhythm, normal S1 and S2 without murmur, rub or gallop Abdomen: Soft and non tender in epigastrium, no organomegaly, no guarding and rigidity, bowel sounds present Neuro: No focal weakness in the upper and lower limb muscles, power of the muscles 5/5 bilateral upper extremity, normal reflexes bilaterally. Cranial nerves intact Power of the muscle left lower extremity and reflexes could not be assessed because knee immobilizer in place Power of muscle right lower extremity 5/5, reflexes normal Gait could not be assessed because of fracture. Extremities: No cyanosis clubbing or edema in upper extremity Right lower Extremity: No cyanosis, clubbing or edema Left Lower Extremity: no cyanosis clubbing, or edema Skin: Warm and Dry Psych: Normal affect Laboratory Tests Test 06/11/25 05:35 06/12/25 06:09 White Blood Count 9.2 X10'3 7.7 X10'3 Red Blood Count 4.76 X10'6 4.72 X10'6 Hemoglobin 13.0 g/dl 13.1 g/dl Hematocrit 39.0 % 38.3 % Mean Corpuscular Volume 81.9 FL 81.1 FL Mean Corpuscular Hemoglobin 27.3 PG 27.7 PG Mean Corpuscular Hemoglobin Concent 33.4 g/dL 34.2 g/dL Red Cell Distribution Width 15.0 % 15.3 % Platelet Count 264 X10'3 286 X10'3 Mean Platelet Volume 8.3 FL 8.4 FL Neutrophils (%) (Auto) 67.2 % 61.6 % Lymphocytes (%) (Auto) 18.2 % 23.0 % Monocytes (%) (Auto) 11.7 % 11.4 % Eosinophils (%) (Auto) 2.6 % 3.7 % Basophils (%) (Auto) 0.3 % 0.3 % Neutrophils # (Auto) 6.2 X10'3 4.7 X10'3 Lymphocytes # (Auto) 1.7 X10'3 1.8 X10'3 Monocytes # (Auto) 1.1 X10'3 0.9 X10'3 Eosinophils # (Auto) 0.2 X10'3 0.3 X10'3 Basophils # (Auto) 0.0 X10'3 0.0 X10'3 CBC Comment Prothrombin Time 10.3 SECONDS 10.1 SECONDS INR International Normalized Ratio 1.0 INR 1.0 INR Activated Partial Thromboplast Time 29 SECONDS 27 SECONDS Coagulation Comments Sodium Level 139 MMOL/L 141 MMOL/L Potassium Level 3.7 MMOL/L 4.1 MMOL/L Chloride Level 105 MMOL/L 106 MMOL/L Carbon Dioxide Level 30.4 MMOL/L 30.9 MMOL/L Anion Gap 4 4 Blood Urea Nitrogen 10 MG/DL 10 MG/DL Creatinine 0.65 MG/DL 0.78 MG/DL Estimated GFR/1.73 m2 87 ML/MIN 71 ML/MIN BUN/Creatinine Ratio 15.4 12.8 Glucose Level 117 MG/DL 127 MG/DL Calcium Level 7.8 MG/DL 8.2 MG/DL Phosphorus Level 3.0 MG/DL 3.1 MG/DL Magnesium Level 2.0 MG/DL 2.0 MG/DL Total Bilirubin 0.7 MG/DL 0.6 MG/DL Aspartate Amino Transf (AST/SGOT) 15 U/L 12 U/L Alanine Aminotransferase (ALT/SGPT) 7 U/L 9 U/L Alkaline Phosphatase 84 IU/L 82 IU/L Total Protein 6.0 G/DL 6.2 G/DL Albumin 2.5 G/DL 2.5 G/DL Globulin 3.5 G/DL 3.7 G/DL Albumin/Globulin Ratio 0.7 0.7 Chemistry Comments Imaging Knee x-ray FINDINGS/IMPRESSION: There is no evidence of acute fracture or dislocation. The visualized joint space is well maintained. The alignment is anatomical. There is no radiopaque foreign body. Lower extremity CT scan FINDINGS: BONES: Sagittally oriented nondisplaced fracture of the proximal tibia extending through the lateral tibial spine and extension to the lateral tibial plateau. Cortical depressed fracture of the lateral tibial plateau with 3 mm cortical depression. Diffusely decreased bone mineralization. MUSCLES: No intramuscular hematoma mild fatty infiltration of the biceps femoris. JOINT SPACES: Large lipohemarthrosis. TENDONS/LIGAMENTS: Intact. OTHER: None. IMPRESSION: 1. Sagittally oriented nondisplaced fracture of the proximal tibia extending through the lateral tibial spine and extension to the lateral tibial plateau. 2. Cortical depressed fracture of the lateral tibial plateau with 3 mm cortical depression. 3. Large lipohemarthrosis. Head CT FINDINGS: There is no evidence for acute intracranial hemorrhage, acute ischemic changes, mass, mass effect, or extra-axial fluid collection. There is no hydrocephalus or midline shift. There is no effacement of the cerebral sulci and basal subarachnoid cisterns. The portillo-white matter differentiation is well maintained. There is mild brain volume loss and [id number] chronic small vessel ischemic change. There has been bilateral cataract extraction. The imaged paranasal sinuses are clear. IMPRESSION: NO ACUTE INTRACRANIAL ABNORMALITY SEEN Discharge Instructions Follow up with PCP within 2 weeks of discharge Follow up with Dr Ordonez in 3-4 weeks of discharge with X-Ray prior to visit. Fall Precauations Call 911 if you experience fall, chest pain or shortness of breath or go to nearest ER. *Problems/Diagnosis: (1) Tibia fracture Status: Acute Total Time Spent on D/C: > 30 Minutes Date of Service: Jun 12, 2025 Billing Provider: BAR RUIZ MD Common Visit Codes: [id number]-BAN/OBS DISCH DAY >30min Problem Qualifiers (1) Tibia fracture: Encounter type: initial encounter Tibia location: proximal Laterality: left HONG GOMEZ, RES Jun 12, 2025 14:10 BAR RUIZ MD Jun 13, 2025 07:05
== END 2025-06-12 12:15 | disposition home health service (06) | DRG 563 ==
LOC: ER 14:25 → ED HOLD 17:46 → ORTHO 4S 21:44
PROVIDERS: ADMIT Internal Medicine; ATTEND Internal Medicine
DX: S82.102A Unspecified fracture of upper end of left tibia, initial encounter for closed fracture (principal); I10 Essential (primary) hypertension; W10.8XXA Fall (on) (from) other stairs and steps, initial encounter; E78.49 Other hyperlipidemia; D72.828 Other elevated white blood cell count; Z79.899 Other long term (current) drug therapy; Y93.89 Activity, other specified; Y92.89 Other specified places as the place of occurrence of the external cause; Y99.8 Other external cause status
CPT/HCPCS: 36415; 70450; 73564; 73700; 80053; 80061; 83605; 83735; 84100; 84145; 85025; 85610; 85730; 87081; 97116; 97161; 97530; 99285; A6213; A6449; G0378; J1644; J1885; J7030; J7120